=== PATIENT | female | born 1995 | race Two or more races ===

== ENCOUNTER 2022-02-19 18:55 | Emergency (ER) | payer OTHER ==
[~2022-02-19] VITALS: Ht 160 cm; Wt 55.8 kg
[2022-02-19] MEDS ORDERED: ACID REDUCER20 M1 (19:19)
[2022-02-19] MEDS ORDERED: LEVOXYL100 MCG (19:19)
[2022-02-20] MEDS ORDERED: PYRIDIUM DS200 MG PO (01:02)
[2022-02-20] MEDS ORDERED: BACTRIM DS TAB1 EACH PO (01:02)
== END 2022-02-20 02:04 | disposition home or self-care (01) ==
LOC: ER 18:55
DX: R19.7 Diarrhea, unspecified (principal); N39.0 Urinary tract infection, site not specified; Z20.822 Contact with and (suspected) exposure to COVID-19; Z91.013 Allergy to seafood